=== PATIENT | female | born 1945 | race Caucasian/White ===

== ENCOUNTER 2021-05-06 11:30 | Emergency (ER) | payer MEDICARE, OTHER ==
[~2021-05-06] VITALS: Ht 167.6 cm; Wt 117.9 kg
[2021-05-06] MEDS ORDERED: ACETAMINOPHEN 325 MG TAB PO ONE (14:30)
[2021-05-06] MEDS ORDERED: LIDOCAINE 4% PATCH TP SCH (14:30)
[2021-05-06] MEDS ORDERED: HYDROCODON-ACE1 EA11 PO (15:01)
[2021-05-06 16:55] VITALS: BP 125/74
== END 2021-05-06 16:56 | disposition home or self-care (01) ==
LOC: ER 11:36
DX: S32.19XA Other fracture of sacrum, initial encounter for closed fracture (principal); S32.059A Unspecified fracture of fifth lumbar vertebra, initial encounter for closed fracture; W17.89XA Other fall from one level to another, initial encounter; Y93.89 Activity, other specified; A80.9 Acute poliomyelitis, unspecified; G82.20 Paraplegia, unspecified; Z88.0 Allergy status to penicillin; E66.9 Obesity, unspecified; Z68.41 Body mass index [BMI] 40.0-44.9, adult
CPT/HCPCS: 70450; 72125; 72131; 72192; 99283

== ENCOUNTER 2021-07-18 21:59 | Inpatient (IN) | payer MEDICARE ==
[~2021-07-18] VITALS: Ht 157.5 cm; Wt 82.6 kg
[~2021-07-18 21:59] MED LIST: HYDROCODON-ACE1 EA11 PO
[2021-07-18] MEDS ORDERED: SODIUM CHLORIDE 0.9% 1000ML 1,000 ML IV SCH ×2 (22:30)
[2021-07-18] MEDS ORDERED: SODIUM CHLORIDE 0.9% 1000ML 2,000 ML ONE (22:30)
[2021-07-18] MEDS ORDERED: Vancomycin IV 1 GM in SODIUM CHLORIDE 0.9% 250ML 250 ML IV STA (22:32)
[2021-07-18] MEDS ORDERED: CEFEPIME 2 GM in SODIUM CHLORIDE 0.9% 100 ML IV ONE (22:45)
[2021-07-18 22:59] LABS: BASOPHILS # (AUTO) 0.1 (0.0-0.1); BASOPHILS % 0.6 % (0.0-1.0); EOSINOPHILS % 0.1 % (0.0-6.0); HEMATOCRIT 47.5 % (34.2-44.1); HEMOGLOBIN 14.7 g/dL (12.0-16.0); LYMPHOCYTES # (AUTO) 1.5 (1.0-3.2); LYMPHOCYTES % 8.3 % (18.0-39.1); MEAN CORPUSCULAR HEMOGLOBIN 28.8 pg (28-32); MEAN CORPUSCULAR HGB CONC 30.9 g/dL (31-35); MEAN CORPUSCULAR VOLUME 93.1 fL (81-99); MONOCYTES # (AUTO) 0.9 (0.2-0.8); NEUTROPHILS # (AUTO) 14.5 (2.1-6.9); NEUTROPHILS % 81.8 % (38.7-80.0); PLATELET COUNT 339 x10e3/uL (140-360); RED CELL DISTRIBUTION WIDTH 17.2 % (11.7-14.4)
[2021-07-18 23:01] LABS: CLARITY,URINE CLOUDY (CLEAR); COLOR,URINE AMBER (YELLOW); KETONES,URINE 1+ (NEGATIVE); LEUKOCYTE ESTERASE ,URINE TRACE (NEGATIVE); NITRITE,URINE NEGATIVE (NEGATIVE); PROTEIN,URINE DIPSTICK 1+ (NEGATIVE); URINE UROBILINOGEN 0.2 mg/dL (0.2 - 1)
[2021-07-18 23:10] LABS: AMORPHOUS SEDIMENT,URINE MANY (FEW); BACTERIA,URINE FEW /HPF; CALCIUM OXALATE CRYSTALS,UR FEW (FEW); EPITHELIAL CELLS,URINE FEW /LPF
[2021-07-18 23:22] LABS: ALBUMIN 1.5 g/dL (3.5-5.0); ALBUMIN/GLOBULIN RATIO 0.4 (0.8-2.0); ANION GAP 25.5 mmol/L (8-16); CALCIUM 10.9 mg/dL (8.4-10.2); CREATININE, SERUM 0.63 mg/dL (0.57-1.11); POTASSIUM 4.5 mmol/L (3.5-5.1)
[2021-07-18] MEDS ORDERED: DEXTROSE 50% SYRINGE 50 ML IV STA (23:24)
[2021-07-18] MEDS ORDERED: ACETAMINOPHEN 325 MG SUPP PR ONE (23:30)
[2021-07-18] MEDS ORDERED: DEXTROSE 50% SYRINGE 50 ML IV ONE (23:36)
[2021-07-18] MEDS ORDERED: NOREPINEPHRINE 8 MG/D5W 250 ML 250 ML IV SCH (23:45)
[2021-07-18] MEDS ORDERED: IOPAMIDOL 370 MG/ML 200 ML INFUS..BTL INJ ONE (23:52)
[2021-07-18] MEDS ORDERED: SODIUM CHLORIDE 0.9% 50ML 50 ML ONE (23:52)
[2021-07-19] VITALS (13 sets, daily range): BP systolic 38–125; BP diastolic 19–113
[2021-07-19] MEDS ORDERED: SODIUM CHLORIDE 0.9% 1000ML 1,000 ML IV SCH
[2021-07-19] MEDS ORDERED: METRONIDAZOLE 500MG/NS 100ML 100 ML IV STA (00:03)
[2021-07-19] MEDS ORDERED: DEXTROSE 50% SYRINGE 50 ML IV PRN (01:30)
[2021-07-19] MEDS ORDERED: LACTATED RINGER'S 1,000 ML INJ SCH (02:00)
[2021-07-19] MEDS ORDERED: HYDRALAZINE HCL 20 MG/ML VIAL IV PRN (02:15)
[2021-07-19] MEDS ORDERED: DOCUSATE SODIUM 100 MG CAP PO PRN (02:15)
[2021-07-19] MEDS ORDERED: ONDANSETRON HCL INJ 2MG/ML 2ML 2 MG/ML VIAL IV PRN (02:15)
[2021-07-19] MEDS ORDERED: MAGNESIUM/ALUMINUM/SIMETHICONE 30 ML UDC PO PRN (02:15)
[2021-07-19] MEDS ORDERED: ACETAMINOPHEN 325 MG TAB PO PRN (02:15)
[2021-07-19] MEDS: LACTATED RINGER'S 1,000 ML INJ SCH ×2 (04:39→10:27)
[2021-07-19] MEDS ORDERED: ACETAMINOPHEN 325 MG SUPP ONE (04:52)
[2021-07-19] MEDS ORDERED: METRONIDAZOLE500 MG PO (05:08)
[2021-07-19] MEDS ORDERED: tylenol with codeine (05:08)
[2021-07-19] MEDS ORDERED: LOSARTAN POTASS25 MG PO (05:08)
[2021-07-19] MEDS ORDERED: CELEBREX200 MG PO (05:12)
[2021-07-19] MEDS ORDERED: CIPRO500 MG PO (05:12)
[2021-07-19] MEDS ORDERED: ZOFRAN4 MG PO (05:12)
[2021-07-19] MEDS ORDERED: METRONIDAZOLE 500MG/NS 100ML 100 ML IV SCH (06:00)
[2021-07-19] MEDS ORDERED: LACTATED RINGER'S 1,000 ML INJ ONE ×2 (06:00→07:00)
[2021-07-19] MEDS ORDERED: CEFEPIME 1 GM in SODIUM CHLORIDE 0.9% 50ML 50 ML IV SCH (06:00)
[2021-07-19] MEDS ORDERED: VASOPRESSIN 60 UNIT in DEXTROSE 5% 50ML 57 ML IV SCH (06:00)
[2021-07-19] MEDS ORDERED: DEXTROSE 5% 50ML 100 ML IV ONE (06:06)
[2021-07-19] MEDS ORDERED: INSULIN REGULAR, HUMAN 100 UNIT/1 ML SQ SCH (07:30)
[2021-07-19] MEDS ORDERED: HYDROMORPHONE 1MG/1ML INJ IV PRN ×2 (08:15→11:45)
[2021-07-19] MEDS ORDERED: MULTIVITAMINS/MINERALS TAB PO SCH (09:00)
[2021-07-19] MEDS ORDERED: ALBUMIN 25% 25GM 100ML 0.25 GM/ML BTL IV ONE (09:00)
[2021-07-19] MEDS ORDERED: ALBUMIN 25% 25GM 100ML 100 ML IV ONE (09:15)
[2021-07-19] MEDS ORDERED: Vancomycin IV 1 GM in SODIUM CHLORIDE 0.9% 250ML 250 ML IV ONE (10:30)
[2021-07-19] MEDS ORDERED: ENOXAPARIN SOD INJ 40 MG/0.4 ML SYR SC SCH (17:00)
== END 2021-07-19 15:34 | disposition expired | DRG 871 ==
LOC: ER 22:06 → ERHOLD 07-19 02:51 → ICU 07-19 04:21
PROVIDERS: ADMIT Internal Medicine; ATTEND Internal Medicine
PROC: 3E033XZ Introduction of Vasopressor into Peripheral Vein, Percutaneous Approach (ICD-10-PCS; principal; 2021-07-19)
DX: A41.9 Sepsis, unspecified organism (principal); R65.21 Severe sepsis with septic shock; E43 Unspecified severe protein-calorie malnutrition; G93.41 Metabolic encephalopathy; J96.00 Acute respiratory failure, unspecified whether with hypoxia or hypercapnia; G82.22 Paraplegia, incomplete; M87.251 Osteonecrosis due to previous trauma, right femur; E87.2 Acidosis; N39.0 Urinary tract infection, site not specified; Z68.41 Body mass index [BMI] 40.0-44.9, adult; K57.30 Diverticulosis of large intestine without perforation or abscess without bleeding; Z66 Do not resuscitate; Z88.0 Allergy status to penicillin; G14 Postpolio syndrome; K80.20 Calculus of gallbladder without cholecystitis without obstruction; I10 Essential (primary) hypertension; Z80.1 Family history of malignant neoplasm of trachea, bronchus and lung; Z80.8 Family history of malignant neoplasm of other organs or systems; Z87.891 Personal history of nicotine dependence; E16.2 Hypoglycemia, unspecified; E88.09 Other disorders of plasma-protein metabolism, not elsewhere classified; R53.81 Other malaise; J44.9 Chronic obstructive pulmonary disease, unspecified; E66.9 Obesity, unspecified; G89.4 Chronic pain syndrome; E83.52 Hypercalcemia; Z20.822 Contact with and (suspected) exposure to COVID-19
CPT/HCPCS: 36415; 71045; 74177; 80053; 81001; 82948; 83605; 85025; 87040; 93005; 93306; 94799; 99285; J0692; J1170; J3370; J7030; J7050; J7121; J7799; P9047; Q9967; U0002